=== PATIENT | female | born 2000 ===

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

== ENCOUNTER 2019-07-15 09:04 | Emergency (ER) | payer OTHER ==
[~2019-07-15] VITALS: Ht 157.5 cm; Wt 72.1 kg
== END 2019-07-15 13:23 | disposition home or self-care (01) ==
LOC: ER 09:04
DX: N39.0 Urinary tract infection, site not specified (principal); R10.2 Pelvic and perineal pain